=== PATIENT | male | born 1990 | race Caucasian/White ===

== ENCOUNTER 2019-04-16 09:51 | Observation (INO) ==
[2019-04-16] MEDS ORDERED: Ipratropium/Albuterol Neb 3 ML IH ONE (11:31)
[2019-04-16 13:40] LABS: Basophils % 0.5 %; Eosinophils # 0.1 K/mcL (0.0-0.6); Eosinophils % 1.4 %; Hematocrit 45.9 % (37.5-50.1); Hemoglobin 16.2 g/dL (12.9-16.9); Immature Granulocytes % 0.4 % (0-4); Lymphocytes # 2.4 K/mcL (0.6-4.6); Lymphocytes % 30.9 %; Mean Corpuscular HGB Conc 35.3 g/dL (31.6-35.5); Mean Corpuscular Hemoglobin 30.5 pg (28.0-33.3); Mean Corpuscular Volume 86.3 fL (83.0-100.0); Mean Platelet Volume 10.1 fL (9.4-12.4); Monocytes # 0.8 K/mcL (0.0-1.3); Monocytes % 9.6 %; Neutrophils # 4.5 K/mcL (1.6-8.9); Platelet Count 277 K/mcL (140-400); Red Blood Count 5.32 M/mcL (4.19-5.50); Red Cell Distribution Width 12.5 % (11.5-14.5); Segmented Neutrophils % 57.2 %; White Blood Count 7.8 K/mcL (4.3-11.1)
[2019-04-16 14:06] LABS: BUN/Creatinine Ratio 15 (6-26); Blood Urea Nitrogen 17 mg/dL (6-20); Calcium 9.9 mg/dL (8.6-10.3); Carbon Dioxide 31 mEq/L (23-29); Chloride 103 mEq/L (98-107); Glucose 99 mg/dL (70-105); Osmolality,Calculated 294 (280-300); Potassium 3.5 mEq/L (3.5-5.1); Sodium 141 mEq/L (136-145); eGFR For African Americans > 60 (> 60); eGFR For Non-African Americans > 60 (> 60)
[2019-04-16] MEDS ORDERED: cefTRIAXone 1,000 MG in 0.9 % Sodium Chloride Mini Bag 100 ML IVPB ONE (14:38)
[2019-04-16] MEDS ORDERED: Azithromycin 500 MG in 0.9 % Sodium Chloride 250 ML IVPB ONE (14:38)
[2019-04-16] MEDS ORDERED: 0.9 % Sodium Chloride 1,000 ML IVC ONE (14:38)
[2019-04-16] MEDS ORDERED: Ondansetron 4 MG/2 ML VIAL IVP PRN (16:14)
[2019-04-16] MEDS ORDERED: Naloxone 0.4 MG/ML INJ IVP PRN (16:14)
[2019-04-16] MEDS: Acetaminophen 325 MG TABLET PO PRN (21:20)
[2019-04-16] MEDS: *HR* Heparin 5,000 UNIT/ML VIAL SQ SCH (21:20)
[2019-04-16 22:44] LABS: Amphetamine Screen,Urine Negative ng/mL (Cutoff=1000); Barbiturate Screen,Urine Negative ng/mL (Cutoff=200); Benzodiazepines Screen,Urine Negative ng/mL (Cutoff=200); Cannabinoid Screen,Urine Negative ng/mL (Cutoff = 50); Cocaine Screen,Urine Negative ng/mL (Cutoff= 300); Opiate Screen,Urine Negative ng/mL (Cutoff=300); Phencyclidine Screen,Urine Negative ng/mL (Cutoff=25)
[2019-04-17] MEDS: *HR* Heparin 5,000 UNIT/ML VIAL SQ SCH ×3 (05:41→21:40)
[2019-04-17 06:17] LABS: Basophils # 0.1 K/mcL (0.0-0.2); Basophils % 0.9 %; Eosinophils # 0.2 K/mcL (0.0-0.6); Eosinophils % 2.6 %; Hematocrit 43.5 % (37.5-50.1); Immature Granulocytes % 0.3 % (0-4); Lymphocytes % 43.6 %; Mean Corpuscular HGB Conc 33.6 g/dL (31.6-35.5); Mean Corpuscular Hemoglobin 30.2 pg (28.0-33.3); Mean Corpuscular Volume 89.9 fL (83.0-100.0); Mean Platelet Volume 10.3 fL (9.4-12.4); Monocytes # 0.6 K/mcL (0.0-1.3); Monocytes % 8.7 %; Platelet Count 256 K/mcL (140-400); Red Blood Count 4.84 M/mcL (4.19-5.50); Red Cell Distribution Width 12.7 % (11.5-14.5); Segmented Neutrophils % 43.9 %; White Blood Count 6.9 K/mcL (4.3-11.1)
[2019-04-17 06:32] LABS: Hemoglobin 14.6 g/dL (12.9-16.9)
[2019-04-17 06:57] LABS: BUN/Creatinine Ratio 16 (6-26); Blood Urea Nitrogen 15 mg/dL (6-20); Carbon Dioxide 29 mEq/L (23-29); Chloride 103 mEq/L (98-107); Glucose 103 mg/dL (70-105); Osmolality,Calculated 293 (280-300); Potassium 3.9 mEq/L (3.5-5.1); Sodium 141 mEq/L (136-145); eGFR For African Americans > 60 (> 60); eGFR For Non-African Americans > 60 (> 60)
[2019-04-17] MEDS: levoFLOXacin 750 MG/150 ML 750 MG/150 ML BAG IVPB SCH (08:37)
[2019-04-17] MEDS ORDERED: Menthol 9.1 MG LOZENGE PO PRN (11:26)
[2019-04-17] MEDS ORDERED: Benzonatate 100 MG CAPSULE PO PRN (11:28)
[2019-04-17] MEDS: Ipratropium/Albuterol Neb 3 ML IH SCH ×3 (11:40→20:03)
[2019-04-17] MEDS: predniSONE 20 MG TABLET PO SCH (12:52)
[2019-04-17 14:23] LABS: Adenovirus Not Detected (Not Detect); Bordetella Pertussis Not Detected (Not Detect); Chlamydophila pneumoniae Not Detected (Not Detect); Coronavirus 229E Not Detected (Not Detect); Coronavirus HKU1 Not Detected (Not Detect); Coronavirus NL63 Not Detected (Not Detect); Coronavirus OC43 Not Detected (Not Detect); Human Metapneumovirus Not Detected (Not Detect); Human Rhinovirus/Enterovirus Not Detected (Not Detect); Influenza A Subtype 2009 H1 Not Detected (Not Detect); Influenza A Untypeable Not Detected (Not Detect); Influenza B Not Detected (Not Detect); Mycoplasma pneumoniae Not Detected (Not Detect); Parainfluenza Virus 1 Not Detected (Not Detect); Parainfluenza Virus 2 Not Detected (Not Detect); Parainfluenza Virus 3 Not Detected (Not Detect); Parainfluenza Virus 4 Not Detected (Not Detect); Respiratory Syncytial Virus Not Detected (Not Detect)
[2019-04-17] MEDS: Acetaminophen 325 MG TABLET PO PRN (16:40)
[2019-04-18] MEDS: Ipratropium/Albuterol Neb 3 ML IH SCH ×5 (00:25→15:33)
[2019-04-18 04:15] LABS: Basophils % 0.2 %; Eosinophils % 0.1 %; Hematocrit 44.1 % (37.5-50.1); Hemoglobin 15.7 g/dL (12.9-16.9); Immature Granulocytes % 0.4 % (0-4); Lymphocytes # 1.2 K/mcL (0.6-4.6); Lymphocytes % 10.6 %; Mean Corpuscular HGB Conc 35.6 g/dL (31.6-35.5); Mean Corpuscular Hemoglobin 31.8 pg (28.0-33.3); Mean Corpuscular Volume 89.5 fL (83.0-100.0); Mean Platelet Volume 10.4 fL (9.4-12.4); Monocytes # 0.8 K/mcL (0.0-1.3); Neutrophils # 9.3 K/mcL (1.6-8.9); Platelet Count 299 K/mcL (140-400); Red Blood Count 4.93 M/mcL (4.19-5.50); Segmented Neutrophils % 81.7 %
[2019-04-18 04:17] LABS: White Blood Count 11.4 K/mcL (4.3-11.1)
[2019-04-18 04:31] LABS: BUN/Creatinine Ratio 21 (6-26); Blood Urea Nitrogen 20 mg/dL (6-20); Calcium 9.4 mg/dL (8.6-10.3); Carbon Dioxide 27 mEq/L (23-29); Chloride 103 mEq/L (98-107); Glucose 141 mg/dL (70-105); Osmolality,Calculated 295 (280-300); Sodium 140 mEq/L (136-145); eGFR For African Americans > 60 (> 60); eGFR For Non-African Americans > 60 (> 60)
[2019-04-18] MEDS: *HR* Heparin 5,000 UNIT/ML VIAL SQ SCH ×2 (05:48→16:36)
[2019-04-18] MEDS: levoFLOXacin 750 MG/150 ML 750 MG/150 ML BAG IVPB SCH (09:25)
[2019-04-18] MEDS: predniSONE 20 MG TABLET PO SCH (09:25)
[2019-04-18 16:02] VITALS: BP 130/75
[2019-04-19] MEDS ORDERED: levoFLOXacin 750 MG TABLET PO SCH (09:00)
== END 2019-04-18 18:29 | disposition home or self-care (01) ==
LOC: 3BNU 09:51 → EMEROOARM 09:51 → SUATTDRO 15:49 → 3BNU 17:14
PROVIDERS: ADMIT Pharmacist; ATTEND Pharmacist